=== PATIENT | female | born 1975 | race Caucasian/White ===

== ENCOUNTER 2018-02-01 11:54 | Emergency (ER) | payer BC, OTHER ==
[~2018-02-01] VITALS: Ht 172.7 cm; Wt 84.0 kg
[2018-02-01 11:55] VITALS: Ht 172.7 cm; Wt 84.0 kg
[2018-02-01] MEDS ORDERED: CLINDAMYCIN 600 MG/54 ML D5W IV STA (12:09)
[2018-02-01] MEDS ORDERED: SODIUM CHLORIDE 0.9% 1000ML 1,000 ML IV STA (12:09)
[2018-02-01] MEDS ORDERED: KETOROLAC TROMETHAMINE 30 MG/ML VIAL IV STA (12:09)
[2018-02-01] MEDS ORDERED: DEXAMETHASONE **PF** INJ 10 MG/ML VIAL IV ONE (12:15)
[2018-02-01] MEDS ORDERED: DEXAMETHASONE SOD INJ 10 MG/ML VIAL ONE (12:43)
[2018-02-01 12:51] LABS: BASO % 0.5 %; BASO ABS # 0.03 K/uL (0-0.2); EOS % 0.5 %; EOS ABS # 0.03 K/uL (0-0.5); HEMATOCRIT 44.7 % (37-47); HEMOGLOBIN 15.5 g/dL (12.0-16.0); IG# 0.01 K/uL (0.00-0.02); LYMPH % 16.7 %; MEAN CELL VOLUME 96.3 fL (80-100); MEAN CORPUSCULAR HEMOGLOBIN 33.4 pg (25-34); MEAN CORPUSCULAR HGB CONC 34.7 g/dl (32-36); MEAN PLATELET VOLUME 10.3 fL (7.4-10.4); MONO % 10.5 %; MONO ABS # 0.63 K/uL (0.11-0.59); NEUT % 71.6 %; NEUT ABS # 4.29 K/uL (1.4-6.5); PLATELET COUNT 209 K/uL (130-400); RED CELL DISTRIBUTION WIDTH CV 12.6 % (11.5-14.5); RED CELL DISTRIBUTION WIDTH SD 44.1 fL (36.4-46.3); WHITE BLOOD COUNT 5.99 K/uL (4.8-10.8)
[2018-02-01 13:12] LABS: CALCIUM 8.6 mg/dl (8.5-10.1); CREATININE 0.82 mg/dl (0.60-1.20); POTASSIUM 3.6 mmol/L (3.5-5.1)
[2018-02-01] MEDS ORDERED: LISD70CA (13:29)
[2018-02-01] MEDS ORDERED: CLIN300C2 PO (13:49)
--- NOTE | 2018-02-01 13:54 | EMERGENCY ROOM VISIT NOTE ---
ED Visit Note First contact with patient: 12:00 CHIEF COMPLAINT: Throat pain, fevers and body aches HISTORY OF PRESENTING ILLNESS: This is a 42-year-old female who presents to the emergency department complaining of throat pain and fevers for the past several days. She states that she began with fevers and chills and just feeling under the weather on Friday, she states she began to have a sore throat the following day and saw her family doctor. She states that she was tested for strep which she states was negative, but she states that her doctor still treated her, she has been on amoxicillin 500 mg twice a day and has been taking this every day since Friday. She states that she has continued to have fevers and chills and general body aches and just feeling ill and does not feel improved at all after starting the amoxicillin. She states that she actually feels worse and she feels that her throat pain has gotten worse, especially on the right side. She has been taking 800 mg of ibuprofen with some improvement in her pain. She denies any difficulty with swallowing or breathing, denies muffled voice or voice changes, cough, or hemoptysis. She denies any chest pain , shortness of breath, dizziness, syncope, abdominal pain, nausea or vomiting, diarrhea, urinary symptoms, or unusual rash. She denies headache. REVIEW OF SYSTEMS: A complete 10 point review of systems was reviewed with the patient with pertinent positives and negatives as per history of present illness. All else were negative. PAST MEDICAL HISTORY: No significant past medical or surgical history. She reports having the Mirena. SOCIAL HISTORY: Lives at home. She denies tobacco use. ALLERGIES: Reviewed in chart, see below. PHYSICAL EXAM: CONSTITUTIONAL: Pleasant and cooperative. No acute distress. Mildly dehydrated , but otherwise well appearing and well nourished. HEENT: Normocephalic, atraumatic. Pupils equal, round and reactive to light, EOMI. TMs normal. Pharynx is erythematous, edematous, with bilateral white exudates noted. No uvular deviation. No trismus. Airway patent. Tacky mucous membranes. NECK: Supple, full active range of motion without discomfort. Bilateral anterior cervical adenopathy, tender to palpation. No nuchal rigidity or meningismus. RESPIRATORY: Clear to auscultation bilaterally with no wheezing, crackles, rhonchi or stridor. Equal expansion bilaterally. CARDIOVASCULAR: Regular rate and rhythm with no murmurs, rubs or gallops. Normal peripheral perfusion. No edema. GASTROINTESTINAL: Soft, nontender, nondistended. No palpable masses or HSM. Bowel sounds present in all quadrants. MUSCULOSKELETAL: Full range of motion of all joints without discomfort. INTEGUMENTARY: No rash or other significant dermatologic conditions noted. NEUROLOGIC: Alert and oriented X 4 with normal affect. Normal strength and sensation in all 4 extremities. No focal neurologic deficits noted. Normal speech. Normal gait observed. ED COURSE AND MEDICAL DECISION MAKING: CC: Patient presenting with complaint of sore throat, fevers and body aches DIFFERENTIAL DIAGNOSIS: Includes, but not limited to pharyngitis, viral versus bacterial, strep pharyngitis, mononucleosis, tonsillitis, peritonsillar abscess , among others. INTERPRETATION OF LABS: No leukocytosis, no anemia, normal platelets, no significant electrolyte abnormalities, normal renal function. Monospot negative. MEDICATION RECONCILIATION: I attest that I have personally reviewed the patient 's current medication list. INITIAL VITAL SIGNS REVIEW: I reviewed the patient's initial vital signs and interpret them as follows: T: Afebrile; BP: Hypertensive; HR: Within normal limits; RR: Is within normal limits; Pulse Ox: Within normal limits on room air. Blood pressure screening: The patient was found to have an elevated blood pressure, which was felt to be situational. SUMMARY: Patient was evaluated at bedside, history and physical exam performed. Patient is alert and oriented, in no acute distress, but does appear uncomfortable, resting calmly in stretcher. Patient appears mildly dehydrated on exam. Pharynx is erythematous, edematous, and exudative, but no trismus or uvular deviation. Airway patent. I do not clinically suspect a peritonsillar abscess at this time. Orders were placed at bedside for labs, IV fluids for hydration, IV Toradol for pain, IV Decadron, IV clindamycin to treat for suspected failed outpatient antibiotics. Patient discussed with Dr. Thurman, who agrees with my assessment and plan. Labs reviewed as above, unremarkable. Monospot negative. Patient reassessed multiple times throughout ED stay, she is remained stable and she states that her throat pain and body aches are improved. Patient was updated on all results and plan for discharge, she was encouraged to follow closely with her PCP and was also provided with referral information for ENT. Patient was also given strict return precautions should her symptoms worsen, she verbalized understanding. Patient was discharged home in stable condition and ambulatory. Current/Historical Medications Scheduled Clindamycin Hcl (Cleocin), 300 MG PO QID Lisdexamfetamine Dimesylate (Vyvanse), DAILY Allergies Coded Allergies: Amphetamine (Unverified Allergy, Unknown, ANGRY, 02/01/18) Dextroamphetamine (Unverified Allergy, Unknown, ANGRY, 02/01/18) Vital Signs Date Time Temp Pulse Resp B/P (MAP) Pulse Ox O2 Delivery O2 Flow Rate FiO2 02/01/18 14:26 37.8 84 18 120/78 100 02/01/18 14:00 84 18 120/78 100 Room Air 02/01/18 13:00 37.8 81 18 124/77 96 Room Air 02/01/18 13:00 81 18 124/77 96 Room Air 02/01/18 11:55 37.8 91 18 132/91 99 Room Air Laboratory Results 02/01/18 12:25 Red Blood Count 4.64, Mean Corpuscular Volume 96.3, Mean Corpuscular Hemoglobin 33.4, Mean Corpuscular Hemoglobin Concent 34.7, Mean Platelet Volume 10.3, Neutrophils (%) (Auto) 71.6, Lymphocytes (%) (Auto) 16.7, Monocytes (%) (Auto) 10.5, Eosinophils (%) (Auto) 0.5, Basophils (%) (Auto) 0.5, Neutrophils # (Auto ) 4.29, Lymphocytes # (Auto) 1.00, Monocytes # (Auto) 0.63, Eosinophils # (Auto ) 0.03, Basophils # (Auto) 0.03 02/01/18 12:25 Test 02/01/18 12:25 White Blood Count 5.99 K/uL (4.8-10.8) Red Blood Count 4.64 M/uL (4.2-5.4) Hemoglobin 15.5 g/dL (12.0-16.0) Hematocrit 44.7 % (37-47) Mean Corpuscular Volume 96.3 fL (80-100) Mean Corpuscular Hemoglobin 33.4 pg (25-34) Mean Corpuscular Hemoglobin Concent 34.7 g/dl (32-36) Platelet Count 209 K/uL (130-400) Mean Platelet Volume 10.3 fL (7.4-10.4) Neutrophils (%) (Auto) 71.6 % Lymphocytes (%) (Auto) 16.7 % Monocytes (%) (Auto) 10.5 % Eosinophils (%) (Auto) 0.5 % Basophils (%) (Auto) 0.5 % Neutrophils # (Auto) 4.29 K/uL (1.4-6.5) Lymphocytes # (Auto) 1.00 K/uL (1.2-3.4) Monocytes # (Auto) 0.63 K/uL (0.11-0.59) Eosinophils # (Auto) 0.03 K/uL (0-0.5) Basophils # (Auto) 0.03 K/uL (0-0.2) RDW Standard Deviation 44.1 fL (36.4-46.3) RDW Coefficient of Variation 12.6 % (11.5-14.5) Immature Granulocyte % (Auto) 0.2 % Immature Granulocyte # (Auto) 0.01 K/uL (0.00-0.02) Anion Gap 8.0 mmol/L (3-11) Est Creatinine Clear Calc Drug Dose 99.4 ml/min Estimated GFR () 100.9 Estimated GFR (Non- 87.0 BUN/Creatinine Ratio 8.5 (10-20) Calcium Level 8.6 mg/dl (8.5-10.1) Monoscreen NEG (NEG) Medications Administered Medications (Trade) Dose Ordered Sig/Jose Route Start Time Stop Time Status Last Admin Dose Admin Sodium Chloride 1,000 ml @ 999 mls/hr Q1H1M STAT IV 02/01/18 12:09 02/01/18 13:09 DC 02/01/18 12:38 999 MLS/HR Clindamycin Phosphate (Cleocin 600mg/ 54ml D5W) 600 mg NOW STAT IV 02/01/18 12:09 02/01/18 12:14 DC 02/01/18 12:56 600 MG Ketorolac Tromethamine (Toradol Inj) 15 mg NOW STAT IV 02/01/18 12:09 02/01/18 12:14 DC 02/01/18 12:39 15 MG Dexamethasone Sodium Phosphate (Decadron Inj) 10 mg STK-MED ONCE .ROUTE 02/01/18 12:43 02/01/18 12:44 DC 02/01/18 12:55 10 MG Departure Information Impression Primary Impression: Acute tonsillitis Dispostion Home / Self-Care Condition GOOD Prescriptions Clindamycin Hcl (CLEOCIN) 300 Mg Cap 300 MG PO QID for 10 Days, #40 CAP Prov: Taylor Archibald CRNP 02/01/18 Referrals Bryant Restrepo M.D. (PCP) Damien Hayden M.D. Patient Instructions ED Tonsillitis, [facility] Additional Instructions You were seen in the emergency department for your sore throat. You were prescribed clindamycin to be taken 4 times a day for the next 10 days. This is an antibiotic. All antibiotics have the potential to cause diarrhea, you should eat yogurt every day or take a daily probiotic to help prevent this. Stop this medication and contact a medical provider if you were to develop any significant adverse side effects including: wheezing, shortness of breath, passing out, vomiting, or a diffuse rash. Always take antibiotics as directed and COMPLETE the ENTIRE course regardless of the improvement of your symptoms. For pain and fever control, you can use the following [facility] medicines (if >12 yo): - Regular strength (325mg/tab) Tylenol (acetaminophen) 2 tabs every 4-6 hours as needed. Do not exceed 10 tablets in a 24 hour period. Avoid taking more than 3000 mg of Tylenol per day. This includes any other sources of acetaminophen you may take on a regular basis. - Regular strength (200 mg/tab) Advil (ibuprofen) 3 tabs every 6-8 hours as needed. Do not exceed a dose of 2400 mg per day. - For best results, alternate dosing of Tylenol and Advil every 3-4 hours. In addition to your prescribed medications, you can also use the following home remedies: - Warm salt-water gargles 3 times per day can soothe your throat and help to fight infection. - Warm tea with honey can soothe your throat. - Chloraseptic throat sprays and Cepacol lozenges to help soothe your throat. Return to the emergency department if your symptoms worsen over the next 2-3 days, or if you develop the following symptoms of: inability to swallow solids, liquids, or drool; excessive wheezing or inability to catch your breath; or persistent high fevers or severe worsening pain. Please follow-up with your primary care provider in the next few days for recheck. You have also been provided with referral information for the ears nose and throat (ENT) surgeon. Please call the office tomorrow to set up an appointment in the next few days for reassessment if your symptoms are not improving. Work Instructions Return To Work: 2 days Problem Qualifiers Primary Impression: Acute tonsillitis Pharyngitis/tonsillitis etiology: unspecified etiology Qualified Codes: J03.90 - Acute tonsillitis, unspecified
[2018-02-01 14:26] VITALS: BP 120/78; PULSE 84; TEMP 37.8; O2SAT 100
== END 2018-02-01 14:35 | disposition home or self-care (01) ==
LOC: C.EDB 11:55
DX: J03.90 Acute tonsillitis, unspecified (principal); R50.9 Fever, unspecified; Z79.899 Other long term (current) drug therapy

== ENCOUNTER 2019-07-30 08:30 | Observation (INO) ==
--- NOTE | 2019-07-14 10:03 | PAT Medication Instructions ---
Medication Instructions Date of Service July 14, 2019 Home Medications hydroxyzine HCl 50 mg PO HS PRN lisdexamfetamine [Vyvanse] 75 mg PO QAM DO NOT take the morning of surgery lisdexamfetamine [Vyvanse] 75 mg PO QAM Take evening before surgery hydroxyzine HCl 50 mg PO HS PRN (if needed) Other Notes If you have any questions please call us at [phone] or [phone] or [phone] or [phone]
--- NOTE | 2019-07-15 11:56 | Anesthesiology Consultation ---
Date of Service July 15, 2019 Assessment & Plan (1) Encounter for pre-operative examination: Check test AM DOS Chart Review Chart Review: Acceptable Risk for Surgery and Patient seen in Pre Admission Testing Teaching & Discussion Pre-Anesthesia Teaching/Discussion Notes: Instructed NPO after midnight before surgery,except medications with 15 cc of water. Medication instructions provided according to the PAT guidelines. History Surgery Operation Date: 07/30/19 10:10 Proposed Procedures p Robotic Total Laparoscopic Hysterectomy - Dalia Villalobos MD, FACOG Height/Weight Height: 5 ft 8 in Weight: 89.9 kg Allergies Allergy/AdvReac Type Severity Reaction Status Date / Time amphetamine AdvReac Unknown ANGRY Verified 07/05/19 13:56 dextroamphetamine AdvReac Unknown ANGRY Verified 07/05/19 13:56 Medications Home Medications Medication Instructions Recorded Confirmed Last Taken hydroxyzine HCl 50 mg PO HS PRN 06/10/19 07/15/19 Unknown lisdexamfetamine [Vyvanse] 75 mg PO QAM 06/10/19 07/15/19 Unknown Past Medical History Medical History ADD (attention deficit disorder) Hx of migraines ocular Renal calculi Exercise / Class Metabolic Activity II 4-5 Yardwork/Stairs/Walk up hill Past Family History Family History Father Crohn's disease Hypertension Daughter Crohn's disease Mother Diabetes Grandfather (Maternal) No problems noted. Grandmother (Maternal) Diabetes Past Surgical History Surgical History H/O LEEP History of colposcopy with cervical biopsy S/P LASIK surgery Past Anesthesia History No Family Hx of Anesthesia Complications and Other (Patient reports at age 16, was given nitrous oxide for a procedure (does not remember what was done) and states that she required O2 monitoring after- resolved without further interv ention. No further details.) History of PONV No Hx of PONV and No Hx of Motion Sickness Social History Smoking Status: Never smoker Do You Dip or Chew Tobacco: No Hx Alcohol Use: Yes Alcohol type: wine alcohol intake frequency: a few times a week Hx Substance Use: No substance use type: does not use Review of Systems Patient denies chest pain, shortness of breath, dyspnea on exertion, cough, wheezing, palpitations. Physical Exam Vital Signs VITALS BP 137/96 (seen by [facility] same day with BP reading 124/70) P 72 TEMP 98.2 SP02 100%RA RESP 16 PHYSICAL Full neck and c-spine range of motion. Full TMJ range of motion. TMD 3.5 finger breaths Mallampati Score 3 Dentition: intact, several crowns "all over" Lungs: clear throughout to auscultation Cardiac: regular rate and rhythm, no murmurs noted Spine: normal Extremities: no edema Testing Laboratory Results 07/15/19 12:14 07/15/19 12:14 Blood Type A Positive 07/15/19 12:14 Antibody Screen NEGATIVE 07/15/19 12:14
[2019-07-15 13:57] LABS: Basophils # (auto) 0.02 K/uL (0-0.2); Basophils % (auto) 0.3 %; Eosinophils # (auto) 0.16 K/uL (0-0.5); Eosinophils % (auto) 2.6 %; Hematocrit (blood only) 41.2 % (37-47); Hemoglobin 13.8 g/dL (12.0-16.0); Immature Granulocytes # (auto) 0.01 K/uL (0.00-0.02); Immature Granulocytes % (auto) 0.2 %; Lymphocytes # (auto) 2.41 K/uL (1.2-3.4); Lymphocytes % (auto) 39.4 %; Mean Corpuscular Hemoglobin 32.1 pg (25-34); Mean Corpuscular Hgb Conc 33.5 g/dL (32-36); Mean Corpuscular Volume 95.8 fL (80-100); Mean Platelet Volume 10.6 fL (7.4-10.4); Monocytes # (auto) 0.39 K/uL (0.11-0.59); Monocytes % (auto) 6.4 %; Neutrophils # (auto) 3.13 K/uL (1.4-6.5); Neutrophils % (auto) 51.1 %; Platelet Count 261 K/uL (130-400); RDW Coefficient of Variation 12.5 % (11.5-14.5); RDW Standard Deviation 43.4 fL (36.4-46.3); White Blood Count 6.12 K/uL (4.8-10.8)
[2019-07-15 15:23] LABS: BUN Creatinine Ratio 16.2 (10-20); Calcium 8.8 mg/dl (8.5-10.1); Creatinine Clr Calc Pharmacy 95.8 ml/min; Est GFR (African American) 93.2; Est GFR (Non-African American) 80.5; Potassium 3.7 mmol/L (3.5-5.1)
[~2019-07-30 08:30] MED LIST: CEFAZOLIN 2000MG 2,000 MG/15 ML SYR IV SCH; LACTATED RINGER'S 1,000 ML IV SCH; LR 15ML/HR IV SCH
--- NOTE | 2019-07-30 09:19 | History & Physical Bridge Note ---
Date of Service July 30, 2019 History & Physical Bridge Note I have examined the patient, reviewed the History & Physical and in the interval since the performance of the History & Physical I have noted the following changes of clinical significance: no changes noted
[2019-07-30] MEDS ORDERED: ATROPINE SULFATE 0.1 MG/ML 10ML SYR IV PRN (09:20)
[2019-07-30] MEDS ORDERED: KETOROLAC 30 MG/ML VIAL IV PRN ×2 (09:20→14:17)
[2019-07-30] MEDS ORDERED: LABETALOL HCL IV 5 MG/ML 20ML IV PRN (09:20)
[2019-07-30] MEDS ORDERED: BUPIVACAINE 0.5 % 5 MG/1 ML MPF 30ML VIAL ONE (09:20)
[2019-07-30] MEDS ORDERED: METHYLENE BLUE 0.5% 10 ML VIAL ONE (09:20)
[2019-07-30] MEDS ORDERED: ONDANSETRON INJ 2 MG/ML 2 ML VIAL IV PRN ×2 (09:20→14:17)
[2019-07-30] MEDS ORDERED: PROMETHAZINE HCL 12.5 MG in SODIUM CHLORIDE 0.9% 50 ML IV PRN ×2 (09:20→14:17)
[2019-07-30] MEDS ORDERED: MIDAZOLAM HCL 1 MG/ML 2ML VIAL ONE (09:22)
[2019-07-30] MEDS ORDERED: LIDOCAINE HCL 2% 2 ML VIAL/AMP(20MG/ML) INFIL ONE (09:22)
[2019-07-30] MEDS ORDERED: NEOSTIGMINE METHYLSULFATE 5 MG/5 ML SYR ONE (09:22)
[2019-07-30] MEDS ORDERED: PROPOFOL IV EMULSION 10 MG/ML 20 ML VIAL IV ONE (09:22)
[2019-07-30] MEDS ORDERED: fentaNYL citrate 100 MCG/2 ML VIAL ONE ×2 (09:22)
[2019-07-30] MEDS ORDERED: GLYCOPYRROLATE 0.2 MG/ML VIAL ONE (09:22)
[2019-07-30] MEDS ORDERED: ONDANSETRON INJ 2 MG/ML 2 ML VIAL ONE (09:22)
[2019-07-30] MEDS ORDERED: DEXAMETHASONE SOD INJ 4 MG/ML VIAL ONE (09:22)
[2019-07-30] MEDS ORDERED: HYDROmorphone INJ 2 MG/ML SYR/VIAL ONE (10:47)
[2019-07-30] MEDS ORDERED: LARYING-O-JET KIT (LTA) ONE (10:49)
[2019-07-30] MEDS ORDERED: KETOROLAC 30 MG/ML VIAL ONE (10:49)
[2019-07-30] MEDS ORDERED: TISSEEL FIBRIN SEALANT 4ML TOP ONE (10:55)
--- NOTE | 2019-07-30 11:31 | Operative Report ---
PG Post Operative Report Pre & Post Diagnosis Operation Date: 07/30/19 09:50 Pre-Op Diagnosis: Menorrhagia Post-Op Diagnosis: Menorrhagia I identified the patient and participated in the time-out.: Yes Procedure Operation Date: 07/30/19 09:50 Actual Procedures p Robotic Total Laparoscopic Hysterectomy, Bilateraly Salpingectomy, Cystoscopy(Not Applicable) - Dalia Villalobos MD, FACOG Surgeon Dalia Villalobos MD, FACOG Direct Chill Casting Operator none Estimated Blood Loss 30 Findings Consistent with Post-Op Diagnosis Specimens Uterus cervix fallopian tubes Description of Procedure Patient given a general anesthetic prepped and draped in dorsal lithotomy position in yellowfin Zak stirrups bladder drained with a Salinas catheter V care placed into her uterus and sewn in place gloves change and a supraumbilical incision made with scalpel using Herring technique we did a cutdown entering the peritoneal cavity placing a blunt-tipped Herring trocar. Balloon inflated and trocar to stabilize the port CO2 gas used to insufflate the abdomen para findings upper abdomen normal no sign of visceral organ injury deep Trendelenburg position obtained uterus and adnexa appeared normal. 2 robotic ports one in the left one on the right placed under direct visualization 11 mm blade was port placed under the left upper quadrant port under direct visualization robot docked on #1 was monopolar colin arm #2 was the [place] bipolar procedure was begun by first identifying and removing the fallopian tubes and removing from there attachments these were then removed through the accessory port ureters identified in each side and they found to follow a normal course the blood supply distal to the left ovary was then coagulated using the bipolar [place] and then cut with the monopolar colin same process with the round ligament uterine vessels skeletonized bladder flap dissected away sharply uterine vessels then coagulated close to the uterus staying away from the ureter on the left side uterine vessels then cut same process was done on the right side in the exact same way colpotomy was then performed with monopolar colin uterus was pulled into the uterus and removed sponge and a glove was placed into the vagina to maintain pneumoperitoneum Instrument exchange occurred arm 1 was monopolar colin was changed to M EGA needle school bus driver arm #2 became the Cobra grasper 12 inch 2 oh 90-day V lock suture placed to the excess report cuff closed from left to right taking at least full 1 cm thickness bites of vaginal Koza suture was cut to there was no tail needle removed the excess report after generous irrigation and suction hemostasis was excellent 4 cc of Tisseel was applied to the pedicles Cystoscopy was performed revealing a normal bladder no sign of sutures or damage good strong jets of bluish-green dye from left and right ureter openings cystoscope removed and a new Salinas catheter placed the sponge and a glove had been removed from the vagina and there was no vaginal bleeding noted Glove change the robot was undocked instruments removed ports removed incisions all injected with 0.5% Marcaine fascia closed in the umbilical and left upper quadrant incision and Dermabond was applied after closing with 4 oh subicular Monocryl sponge and instrument counts correct I attest to the content of the Intraoperative Record and any orders documented therein. Any exceptions are noted below.
[2019-07-30] MEDS: HYDROmorphone INJ 1 MG/ML SYRINGE IV PRN ×4 (11:46→12:01)
--- NOTE | 2019-07-30 14:16 | Anesthesiology Progress Note ---
Date of Service July 30, 2019 Anesthesia Post Procedure Vital Signs Vital Signs: Temp Pulse Pulse Resp BP Pulse Ox 07/30/19 13:30 71 16 128/84 100 07/30/19 12:45 50 L 12 131/91 100 07/30/19 12:30 48 L 12 115/88 100 07/30/19 12:15 36.8 C 63 12 127/87 100 07/30/19 12:05 52 L 10 L 121/88 100 07/30/19 11:55 61 7 L 130/89 100 07/30/19 11:45 63 8 L 134/88 100 07/30/19 11:36 36.9 C 76 16 130/84 100 07/30/19 08:57 36.5 C 69 20 147/99 H 99 Pain Intensity Abdomen: Pain Intensity: 3 Transfer of Care Handoff Completed per policy Notes Mental Status: alert / awake / arousable Patient Amnestic to Procedure: Yes Nausea / Vomiting: adequately controlled Pain: adequately controlled Airway Patency, RR, SpO2: stable & adequate BP & HR: stable & adequate Hydration State: stable & adequate Anesthetic Complications: no major complications apparent
[2019-07-30] MEDS ORDERED: MEPERIDINE HCL 50 MG/ML CARP IV PRN (14:17)
[2019-07-30] MEDS ORDERED: LACTATED RINGER'S 1,000 ML IV SCH (14:17)
[2019-07-30] MEDS ORDERED: ZOLPIDEM TARTRATE 5 MG TAB PO PRN (14:17)
[2019-07-30] MEDS ORDERED: ACETAMINOPHEN 325 MG TAB PO PRN (14:17)
[2019-07-30] MEDS ORDERED: IBUPROFEN 600 MG TAB PO PRN (14:17)
[2019-07-30] MEDS ORDERED: MAGNESIUM HYDROXIDE SUSP 30 ML UDC PO PRN (14:17)
[2019-07-30] MEDS ORDERED: bisacodyL 10 MG SUPP PR PRN (14:17)
[2019-07-30] MEDS ORDERED: SIMETHICONE 80 MG CHEW PO PRN (14:17)
[2019-07-30] MEDS ORDERED: OXYCODONE/ACETAMINOPHEN 5mg/325mg TAB PO PRN ×2 (14:17)
[2019-07-30] MEDS ORDERED: DOCUSATE SODIUM 100 MG CAP PO SCH (21:00)
[2019-07-31] MEDS ORDERED: LISDEXAMFETAMINE PO SCH (09:00)
--- NOTE | 2019-08-01 17:18 | Discharge Summary ---
Date of Service August 01, 2019 p Admission HPI Per Admitting Provider patient had TLH and was discharged a few hours later after. Discharge Data Procedures Performed Operation Date: 07/30/19 09:50 Actual Procedures p Robotic Total Laparoscopic Hysterectomy, Bilateraly Salpingectomy, (Not Applicable) - Dalia Villalobos MD, FACOG s Cystoscopy(Not Applicable) - Dalia Villalobos MD, FACOG Hospital Course (1) Menorrhagia: Patient was able to ambulate, tolerated JEEVAN and pain was well controlled. Voided well. met criteria and discharged home Coding Level of Care Code None Diagnoses Menorrhagia N92.0
== END 2019-07-30 18:52 | disposition home or self-care (01) ==
LOC: ASU 08:30 → 3N 08:30